=== PATIENT | female | born 1960 | race African-American/Black ===

== ENCOUNTER 2018-01-21 23:25 | Emergency (ER) | payer SELFPAY | END 2018-01-22 01:27 | disposition home or self-care (01) | LOC: ER 23:25 | DX: S16.1XXA Strain of muscle, fascia and tendon at neck level, initial encounter (principal); S00.93XA Contusion of unspecified part of head, initial encounter; I11.0 Hypertensive heart disease with heart failure; I50.9 Heart failure, unspecified; W01.0XXA Fall on same level from slipping, tripping and stumbling without subsequent striking against object, initial encounter; Y93.89 Activity, other specified; Y99.8 Other external cause status; Y92.89 Other specified places as the place of occurrence of the external cause | CPT/HCPCS: 70450; 72125; 99284 ==

== ENCOUNTER 2018-02-05 01:57 | Emergency (ER) | payer SELFPAY | END 2018-02-05 03:00 | disposition home or self-care (01) | LOC: ER 01:57 | DX: R51 Headache (principal); I50.9 Heart failure, unspecified; E78.00 Pure hypercholesterolemia, unspecified; I10 Essential (primary) hypertension; I25.2 Old myocardial infarction; Z88.6 Allergy status to analgesic agent | CPT/HCPCS: 99282 ==

== ENCOUNTER 2018-02-11 01:11 | Emergency (ER) | payer SELFPAY ==
[2018-02-11] MEDS: diazePAM 5 MG TABLET PO (02:57)
== END 2018-02-11 03:10 | disposition home or self-care (01) ==
LOC: ER 01:11
DX: F41.9 Anxiety disorder, unspecified (principal); R51 Headache; K59.00 Constipation, unspecified; I11.0 Hypertensive heart disease with heart failure; I50.9 Heart failure, unspecified; E78.00 Pure hypercholesterolemia, unspecified; I25.2 Old myocardial infarction; Z88.8 Allergy status to other drugs, medicaments and biological substances
CPT/HCPCS: 99283; 99284

== ENCOUNTER 2018-03-18 18:03 | Emergency (ER) | payer SELFPAY ==
[2018-03-18 18:33] LABS: BILIRUBIN,URINE SMALL (NEG); CLARITY,URINE TURBID; COLOR,URINE AMBER; GLUCOSE,URINE NEGATIVE (NEG); NITRITE,URINE POSITIVE (NEG); PROTEIN,URINE >=300 mg/dL (NEG-TRACE)
[2018-03-18 18:51] LABS: BACTERIA,URINE MANY /HPF (0-FEW); RBC,URINE >40 /HPF (0-2); SQUAMOUS EPITHELIAL CELL,UR MOD /LPF; WBC,URINE TNTC /HPF (0-4)
== END 2018-03-18 19:03 | disposition home or self-care (01) ==
LOC: ER 18:03
DX: N39.0 Urinary tract infection, site not specified (principal); I11.0 Hypertensive heart disease with heart failure; I50.9 Heart failure, unspecified; I25.10 Atherosclerotic heart disease of native coronary artery without angina pectoris; I25.2 Old myocardial infarction; E78.00 Pure hypercholesterolemia, unspecified; Z88.8 Allergy status to other drugs, medicaments and biological substances
CPT/HCPCS: 81001; 99283

== ENCOUNTER 2019-09-22 07:03 | Emergency (ER) | payer SELFPAY ==
[~2019-09-22] VITALS: Ht 162.6 cm; Wt 86.0 kg
[~2019-09-22 07:03] MED LIST: AMLO10TA8 PO; ATOR40TA PO; Aspirin PO; CARV12.511 PO; CARV3.12 PO; CARV6.25 PO; FURO-68 PO; FURO40TA4 PO; HYDR-2145 PO; Hydralazine Hcl PO; Isosorbide Mononitrate PO; LOSA100T2 PO; LOSA25TA54 PO; LOVA20TA2 PO; POTA20TA4 PO; SULF1TAB24 PO; TRAM50TA PO
--- NOTE | 2019-09-22 07:31 | EKG ---
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
[2019-09-22 07:49] LABS: BARBITURATES NEG (NEG); BENZODIAZEPINES NEG (NEG); CANNABINOIDS POS (NEG); COCAINE NEG (NEG); METHADONE NEG (NEG); OPIATES NEG (NEG); PHENCYCLIDINE NEG (NEG)
[2019-09-22 07:51] LABS: AMPHETAMINE/METHAMPHETAMINE NEG (NEG)
[2019-09-22 07:54] LABS: BILIRUBIN,URINE NEGATIVE (NEG); CLARITY,URINE CLOUDY; COLOR,URINE YELLOW; NITRITE,URINE POSITIVE (NEG); PROTEIN,URINE NEGATIVE (NEG-TRACE)
[2019-09-22 07:57] LABS: BACTERIA,URINE MODERATE /HPF (0-FEW); HYALINE CASTS, URINE MODERATE /HPF; SQUAMOUS EPITHELIAL CELL,UR MOD /LPF
[2019-09-22] MEDS ORDERED: cloNIDine HCL 0.1 MG TABLET PO ONE (08:15)
--- NOTE | 2019-09-22 08:18 | RAD ---
PORTABLE CHEST 1V History: Palpitations Comparison: August 05, 2016 Findings: No consolidation or pleural effusion. Normal heart size. No pneumothorax. Impression: 1. No acute cardiopulmonary process. Electronically signed by: Neil Goodwin DO (09/22/2019 8:16 AM) [facility]
--- NOTE | 2019-09-22 08:33 | PHYS DOC ---
Past Medical History Past Medical History: CAD, CHF, High Cholesterol, Hypertension, [place], Other Additional Past Medical Histor: cardiomegaly Past Surgical History: Other Additional Past Surgical Histo: cervix, heart cath Alcohol Use: Heavy Drug Use: None Adult General Chief Complaint Chief Complaint: Palpitations HPI HPI Patient is a 59 year old female with history of hypertension, dyslipidemia, coronary artery disease, CHF, cardiomegaly who presents via EMS with complaining of heart racing. [place] and had a panic Attack and felt shortness of breath and heart racing and denied shortness of breath. Patient states she feeling fine at arrival to ER. Patient [place]. Review of Systems Review of Systems Constitutional: Denies fever or chills [] Eyes: Denies change in visual acuity, redness, or eye pain [] HENT: Denies nasal congestion or sore throat [] Respiratory: Denies cough or shortness of breath [] Cardiovascular: No additional information not addressed in HPI [] GI: Denies abdominal pain, nausea, vomiting, bloody stools or diarrhea [] : Denies dysuria or hematuria [] Musculoskeletal: Denies back pain or joint pain [] Integument: Denies rash or skin lesions [] Neurologic: Denies headache, focal weakness or sensory changes [] Endocrine: Denies polyuria or polydipsia [] All other systems were reviewed and found to be within normal limits, except as documented in this note. Current Medications Current Medications Current Medications Medications (Trade) Dose Ordered Sig/Brenna Start Time Stop Time Status Last Admin Dose Admin Alprazolam (Xanax) 0.5 mg 1X ONCE 09/22/19 09:30 09/22/19 09:31 DC 09/22/19 10:36 0.5 MG Clonidine HCl (Catapres) 0.1 mg 1X ONCE 09/22/19 08:15 09/22/19 08:16 DC 09/22/19 08:20 0.1 MG Potassium Chloride (Klor-Con) 40 meq 1X ONCE 09/22/19 09:30 09/22/19 09:31 DC 09/22/19 10:36 40 MEQ Allergies Allergies Allergies Coded Allergies Type Severity Reaction Last Updated Verified nitroglycerin Allergy Intermediate 08/05/16 Yes Uncoded Allergies Type Severity Reaction Last Updated Verified unknown blood pressure medication Allergy Intermediate Swelling, Benadryl reverses rxn 08/13/16 Physical Exam Physical Exam Constitutional: Well developed, well nourished, mild distress, non-toxic appearance. [] HENT: Normocephalic, atraumatic. Eyes: PERRLA, EOMI, conjunctiva normal, no discharge. [] Neck: Normal range of motion, no tenderness, supple, no stridor. [] Cardiovascular:Heart rate regular rhythm, no murmur [] Lungs & Thorax: Bilateral breath sounds clear to auscultation [] Abdomen: Bowel sounds normal, soft, no tenderness, no masses, no pulsatile masses. [] Skin: Warm, dry, no erythema, no rash. [] Back: No tenderness, no CVA tenderness. [] Extremities: No tenderness, no cyanosis, no clubbing, ROM intact, no edema. [] Neurologic: Alert and oriented X 3, no focal deficits noted. [] Psychologic: Affect anxious, judgement normal, mood normal. [] Current Patient Data Vital Signs Vital Signs Date Time Temp Pulse Resp B/P (MAP) Pulse Ox O2 Delivery O2 Flow Rate FiO2 09/22/19 10:10 72 14 159/67 (97) 98 Room Air 09/22/19 07:03 98.4 98.4 Lab Values Laboratory Tests Test 09/22/19 07:33 09/22/19 08:55 Urine Collection Type Unknown Urine Color Yellow Urine Clarity Cloudy Urine pH 7.0 Urine Specific [place] 1.015 Urine Protein Negative mg/dL (NEG-TRACE) Urine Glucose (UA) Negative mg/dL (NEG) Urine Ketones (Stick) Negative mg/dL (NEG) Urine Blood Trace (NEG) Urine Nitrite Positive (NEG) Urine Bilirubin Negative (NEG) Urine Urobilinogen Dipstick 1.0 mg/dL (0.2 mg/dL) Urine Leukocyte Esterase Small (NEG) Urine RBC 1-2 /HPF (0-2) Urine WBC 11-20 /HPF (0-4) Urine Squamous Epithelial Cells Mod /LPF Urine Bacteria Moderate /HPF (0-FEW) Urine Hyaline Casts Moderate /HPF Urine Mucus Slight /LPF Urine Opiates Screen Neg (NEG) Urine Methadone Screen Neg (NEG) Urine Barbiturates Neg (NEG) Urine Phencyclidine Screen Neg (NEG) Urine Amphetamine/Methamphetamine Neg (NEG) Urine Benzodiazepines Screen Neg (NEG) Urine Cocaine Screen Neg (NEG) Urine Cannabinoids Screen Pos (NEG) Urine Ethyl Alcohol Neg (NEG) White Blood Count 6.5 x10^3/uL (4.0-11.0) Red Blood Count 5.26 x10^6/uL (3.50-5.40) Hemoglobin 16.8 g/dL (12.0-15.5) H Hematocrit 49.2 % (36.0-47.0) H Mean Corpuscular Volume 94 fL (79-100) Mean Corpuscular Hemoglobin 32 pg (25-35) Mean Corpuscular Hemoglobin Concent 34 g/dL (31-37) Red Cell Distribution Width 13.6 % (11.5-14.5) Platelet Count 172 x10^3/uL (140-400) Neutrophils (%) (Auto) 69 % (31-73) Lymphocytes (%) (Auto) 21 % (24-48) L Monocytes (%) (Auto) 6 % (0-9) Eosinophils (%) (Auto) 3 % (0-3) Basophils (%) (Auto) 1 % (0-3) Neutrophils # (Auto) 4.5 x10^3/uL (1.8-7.7) Lymphocytes # (Auto) 1.4 x10^3/uL (1.0-4.8) Monocytes # (Auto) 0.4 x10^3/uL (0.0-1.1) Eosinophils # (Auto) 0.2 x10^3/uL (0.0-0.7) Basophils # (Auto) 0.1 x10^3/uL (0.0-0.2) Sodium Level 142 mmol/L (136-145) Potassium Level 2.7 mmol/L (3.5-5.1) *L Chloride Level 101 mmol/L (98-107) Carbon Dioxide Level 29 mmol/L (21-32) Anion Gap 12 (6-14) Blood Urea Nitrogen 8 mg/dL (7-20) Creatinine 0.9 mg/dL (0.6-1.0) Estimated GFR (Cockcroft-Gault) 77.3 BUN/Creatinine Ratio 9 (6-20) Glucose Level 114 mg/dL (70-99) H Calcium Level 11.0 mg/dL (8.5-10.1) H Total Bilirubin 1.0 mg/dL (0.2-1.0) Aspartate Amino Transferase (AST) 32 U/L (15-37) Alanine Aminotransferase (ALT) 33 U/L (14-59) Alkaline Phosphatase 117 U/L (46-116) H Creatine Kinase 566 U/L (26-192) H Troponin I Quantitative 0.101 ng/mL (0.000-0.055) NT-Dcv-F-Type Natriuretic Peptide 221 pg/mL (0-124) H Total Protein 8.2 g/dL (6.4-8.2) Albumin 4.5 g/dL (3.4-5.0) Albumin/Globulin Ratio 1.2 (1.0-1.7) Ethyl Alcohol Level < 10 mg/dL (0-10) Laboratory Tests 09/22/19 08:55 Laboratory Tests 09/22/19 08:55 EKG EKG Interpreted by me. EKG at 0707 showed normal sinus rhythm at rate of 91, left morales axis, LVH with repolarization abnormality, no acute ST and T-wave elevation. Radiology/Procedures Radiology/Procedures [facility] [address] [place] [address] IMAGING REPORT Signed PATIENT: JOYCE BLACKMAN ACCOUNT: [id number] : 1960 LOCATION: ER AGE: 59 SEX: F EXAM STATUS: REG ER ORD. PHYSICIAN: DEISY PHAN MD REASON: palpitation PROCEDURE: PORTABLE CHEST 1V PORTABLE CHEST 1V History: Palpitations Comparison: August 05, 2016 Findings: No consolidation or pleural effusion. Normal heart size. No pneumothorax. Impression: 1. No acute cardiopulmonary process. Electronically signed by: Neil Goodwin DO (09/22/2019 8:16 AM) [facility] DICTATED and SIGNED BY: NEIL GOODWIN DO DATE: 09/22/19815 Course & Med Decision Making Course & Med Decision Making Pertinent Labs and Imaging studies reviewed. (See chart for details) Evaluation of patient ER showed 59-year-old female patient brought in by EMS after she developed panic attack after lost of her morning while she was increasing. Patient had unremarkable physical exam except for agitation. Patient had potassium of 2.7 with history of chronic hypokalemia and treated with potassium. Patient also had chronic elevation of troponin without new change today. UA showed UTI. Patient was advised to continue her home medication and prescription for UTI and hypokalemia was given and was advised to follow-up with her primary care physician. I've spoken with the patient and/or caregivers. I've explained the patient's condition, diagnosis and treatment plan based on information available to me at this time. I've answered the patient's and/or caregivers questions and addressed any concerns. The patient and/or caregivers have a good understanding the patient's diagnosis, condition and treatment plan as can be expected at this point. Vital signs have been stabilized. The patient's condition is stable for discharge from the emergency department. The patient will pursue further outpatient evaluation with her primary care provider or other designated consulting physician as outlined in the discharge instructions. Patient and/or caregivers are agreeable to this plan of care and follow-up instructions have been explained in detail. The patient and/or caregivers have received these instructions in written format and expressed understanding of these discharge instructions. The patient and her caregivers are aware that if any significant change in condition or worsening of symptoms should prompt him to immediately return to this of the closest emergency department. If an emergent department is not readily available I would encourage him to call 911. Kelsey Disclaimer Kelsey Disclaimer This electronic medical record was generated, in whole or in part, using a voice recognition dictation system. Departure Departure Impression: Primary Impression: Panic attack Additional Impressions: Hypokalemia Elevated troponin I level Hypertensive urgency Urinary tract infection Hypercalcemia Alcohol abuse Disposition: HOME, SELF-CARE (at 1006) Condition: IMPROVED Referrals: NO PCP (PCP) Patient Instructions: Anxiety and Panic Attacks, Hypokalemia, Urinary Tract Infection Additional Instructions: Drink plenty of liquids Follow-up with your primary care physician in 3-5 days Return to ER if not getting better Thank you for visiting [facility]. We appreciate you trusting us with your care. If any additional problems come up don't hesitate to return to visit us. Please follow up with your primary care provider so they can plan additional care if needed and know about the problem that you had. If symptoms worsen come back to the Emergency Department. Any concerning symptoms that start such as chest pain, shortness of air, weakness or numbness on one side of the body, running high fevers or any other concerning symptoms return to the ER. Scripts Potassium Chloride (KLOR-CON M20) 20 Meq Tab.er.prt 1 TAB PO BID, #14 TAB 0 Refills Prov: DEISY PHAN MD 09/22/19 Cephalexin (KEFLEX) 500 Mg Capsule 1 CAP PO Q8HRS, #21 CAP 0 Refills Prov: DEISY PHAN MD 09/22/19 Problem Qualifiers Additional Impressions: Urinary tract infection Urinary tract infection type: site unspecified Hematuria presence: without hematuria Qualified Codes: N39.0 - Urinary tract infection, site not specified DEISY PHAN MD Sep 22, 2019 08:33
[2019-09-22 09:13] LABS: BASO # 0.1 x10^3/uL (0.0-0.2); BASO % 1 % (0-3); EOS # 0.2 x10^3/uL (0.0-0.7); EOS % 3 % (0-3); HEMATOCRIT 49.2 % (36.0-47.0); HEMOGLOBIN 16.8 g/dL (12.0-15.5); LYMPH # 1.4 x10^3/uL (1.0-4.8); LYMPH % 21 % (24-48); MEAN CORPUSCULAR HEMOGLOBIN 32 pg (25-35); MEAN CORPUSCULAR HGB CONC 34 g/dL (31-37); MEAN CORPUSCULAR VOLUME 94 fL (79-100); MONO # 0.4 x10^3/uL (0.0-1.1); MONO % 6 % (0-9); NEUT # 4.5 x10^3/uL (1.8-7.7); NEUT % 69 % (31-73); PLATELET COUNT 172 x10^3/uL (140-400); RED BLOOD COUNT 5.26 x10^6/uL (3.50-5.40); RED CELL DISTRIBUTION WIDTH 13.6 % (11.5-14.5); WHITE BLOOD COUNT 6.5 x10^3/uL (4.0-11.0)
[2019-09-22 09:21] LABS: ALBUMIN 4.5 g/dL (3.4-5.0); ALBUMIN/GLOBULIN RATIO 1.2 (1.0-1.7); CREATININE 0.9 mg/dL (0.6-1.0); GFR 77.3; TOTAL PROTEIN 8.2 g/dL (6.4-8.2)
[2019-09-22 09:23] LABS: POTASSIUM 2.7 mmol/L (3.5-5.1)
[2019-09-22] MEDS ORDERED: POTASSIUM CHLORIDE 20 MEQ TABLET.ER. PO ONE (09:30)
[2019-09-22] MEDS ORDERED: ALPRAZolam 0.5 MG TABLET PO ONE (09:30)
[2019-09-22] MEDS ORDERED: CEPH-264 PO (10:09)
[2019-09-22] MEDS ORDERED: POTA20TA4 PO (10:09)
[2019-09-22 10:10] VITALS: BP 159/67
== END 2019-09-22 10:44 | disposition home or self-care (01) ==
LOC: ER 07:03
DX: F41.0 Panic disorder [episodic paroxysmal anxiety] (principal); N39.0 Urinary tract infection, site not specified; E87.6 Hypokalemia; R79.89 Other specified abnormal findings of blood chemistry; I10 Essential (primary) hypertension; E83.51 Hypocalcemia; F10.10 Alcohol abuse, uncomplicated; I25.10 Atherosclerotic heart disease of native coronary artery without angina pectoris; I50.9 Heart failure, unspecified; E78.00 Pure hypercholesterolemia, unspecified; I25.2 Old myocardial infarction; Z98.890 Other specified postprocedural states; Z88.1 Allergy status to other antibiotic agents; Z88.8 Allergy status to other drugs, medicaments and biological substances
CPT/HCPCS: 36415; 71045; 80053; 80307; 81001; 82550; 83880; 84484; 85025; 87086; 93005; 99285; G0480

== ENCOUNTER 2019-09-24 02:59 | Emergency (ER) | payer SELFPAY ==
[~2019-09-24] VITALS: Ht 162.6 cm; Wt 72.7 kg
[~2019-09-24 02:59] MED LIST changes: +CEPH-264 PO
[2019-09-24 03:10] VITALS: BP 194/98
[2019-09-24] MEDS ORDERED: AMOX1TAB61 PO (03:32)
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
[2019-09-24] MEDS: DIPHTH,PERTUSS(ACELL),TET TOX 0.5 ML DISP.SYRIN. VAX IM ONE (04:29)
== END 2019-09-24 04:42 | disposition home or self-care (01) ==
LOC: ER 02:59
DX: S61.256A Open bite of right little finger without damage to nail, initial encounter (principal); R60.9 Edema, unspecified; I25.10 Atherosclerotic heart disease of native coronary artery without angina pectoris; I50.9 Heart failure, unspecified; E78.00 Pure hypercholesterolemia, unspecified; I10 Essential (primary) hypertension; I25.2 Old myocardial infarction; F10.10 Alcohol abuse, uncomplicated; Z98.890 Other specified postprocedural states; Z88.1 Allergy status to other antibiotic agents; Z88.8 Allergy status to other drugs, medicaments and biological substances; Y04.1XXA Assault by human bite, initial encounter; Y93.89 Activity, other specified; Y92.89 Other specified places as the place of occurrence of the external cause; Y99.8 Other external cause status
CPT/HCPCS: 90471; 90715; 99284

== ENCOUNTER → 2019-09-25 | Emergency (ER) | payer SELFPAY ==
[~2019-09-25] VITALS: Ht 162.6 cm; Wt 90.9 kg
[~2019-09-25] MED LIST changes: +AMOX1TAB61 PO
--- NOTE | 2019-09-25 23:36 | PHYS DOC ---
Past Medical History Past Medical History: CAD, CHF, High Cholesterol, Hypertension, [place], Other Additional Past Medical Histor: cardiomegaly Past Surgical History: Other Additional Past Surgical Histo: cervix, heart cath Alcohol Use: Heavy Drug Use: None Adult General Chief Complaint Chief Complaint: HEADACHE HPI HPI Patient is a 59 year old female who presents with report that she feels like maybe her blood pressure is elevated. Patient states that she wanted to come in and have it checked. She also has questions about some medications that had been prescribed in the past but is not sure what those medications are. She states that she has had a little bit of a headache which is why she thinks that her blood pressure is elevated. She denies any chest pain or shortness breath. She denies any fever. She denies any nausea or vomiting.[] Review of Systems Review of Systems Constitutional: Denies fever or chills [] Eyes: Denies change in visual acuity, redness, or eye pain [] Respiratory: Denies cough or shortness of breath [] Cardiovascular: No additional information not addressed in HPI [] Integument: Denies rash or skin lesions [] Neurologic: Admits to mild headache without focal weakness or sensory changes [] Allergies Allergies Allergies Coded Allergies Type Severity Reaction Last Updated Verified nitroglycerin Allergy Intermediate 08/05/16 Yes Uncoded Allergies Type Severity Reaction Last Updated Verified unknown blood pressure medication Allergy Intermediate Swelling, Benadryl reverses rxn 08/13/16 Physical Exam Physical Exam Constitutional: Well developed, well nourished, no acute distress, non-toxic appearance. [] Neck: Normal range of motion, no tenderness, supple, no stridor. [] Cardiovascular: Regular rate and rhythm[] Lungs & Thorax: Bilateral breath sounds clear to auscultation [] Extremities: No tenderness, no cyanosis, no clubbing, ROM intact, no edema. [] Neurologic: Alert and oriented X 3, no focal deficits noted. [] Current Patient Data Vital Signs Vital Signs Date Time Temp Pulse Resp B/P (MAP) Pulse Ox O2 Delivery O2 Flow Rate FiO2 09/25/19 23:46 98.0 93 20 175/105 (128) 100 Room Air 98.0 EKG EKG [] Radiology/Procedures Radiology/Procedures [] Course & Med Decision Making Course & Med Decision Making Pertinent Labs and Imaging studies reviewed. (See chart for details) [] Dragon Disclaimer Dragon Disclaimer This electronic medical record was generated, in whole or in part, using a voice recognition dictation system. Departure Departure Impression: Primary Impression: Essential hypertension Disposition: 01 HOME, SELF-CARE Condition: STABLE Referrals: NO PCP (PCP) Patient Instructions: Hypertension TARI TODD Jr. DO Sep 25, 2019 23:36
[2019-09-25 23:46] VITALS: BP 175/105
== END ==
LOC: ER 22:57
DX: I10 Essential (primary) hypertension (principal); I25.10 Atherosclerotic heart disease of native coronary artery without angina pectoris; I50.9 Heart failure, unspecified; E78.00 Pure hypercholesterolemia, unspecified; I25.2 Old myocardial infarction; F10.10 Alcohol abuse, uncomplicated; Z98.890 Other specified postprocedural states; Z88.1 Allergy status to other antibiotic agents; Z88.8 Allergy status to other drugs, medicaments and biological substances
CPT/HCPCS: 99281

== ENCOUNTER 2019-10-03 03:45 | Emergency (ER) | payer SELFPAY ==
[~2019-10-03] VITALS: Ht 162.6 cm; Wt 72.7 kg
--- NOTE | 2019-10-03 04:11 | PHYS DOC ---
Past Medical History Past Medical History: CAD, CHF, High Cholesterol, Hypertension, [place], Other Additional Past Medical Histor: cardiomegaly Past Surgical History: Other Additional Past Surgical Histo: cervix, heart cath Alcohol Use: Heavy Drug Use: None Adult General Chief Complaint Chief Complaint: HYPERTENSION [facility] HPI 59-year-old female presents to emergency department for blood pressure check. Patient has had 9 visits to the emergency room since she's moved here in September. She denies any complaints of chest pain, shortness breath, nausea, vomiting, headache, visual change. She is resting comfortably at this time blood pressure is 181/78. She has no acute complaints on examination. She was concerned it was mildly elevated at home therefore presented to the ER for further evaluation. All other ROS negative unless documented in HPI Review of Systems Review of Systems See Above Allergies Allergies Allergies Coded Allergies Type Severity Reaction Last Updated Verified nitroglycerin Allergy Intermediate 08/05/16 Yes Uncoded Allergies Type Severity Reaction Last Updated Verified unknown blood pressure medication Allergy Intermediate Swelling, Benadryl reverses rxn 08/13/16 Physical Exam Physical Exam See Above Constitutional: Well developed, well nourished, no acute distress, non-toxic appearance. [] Cardiovascular:Heart rate regular rhythm, no murmur [] Lungs & Thorax: Bilateral breath sounds clear to auscultation [] Abdomen: Bowel sounds normal, soft, no tenderness, no masses, no pulsatile masses. [] Skin: Warm, dry, no erythema, no rash. [] Extremities: No tenderness, no edema. [] Neurologic: Alert and oriented X 3, no focal deficits noted. [] Psychologic: Affect normal, judgement normal, mood normal. [] EKG EKG [] Radiology/Procedures Radiology/Procedures [] Course & Med Decision Making Course & Med Decision Making Pertinent Labs and Imaging studies reviewed. (See chart for details) []59-year-old female presents to emergency department for blood pressure check. Patient has had 9 visits to the emergency room since she's moved here in September. She denies any complaints of chest pain, shortness breath, nausea, vomiting, headache, visual change. She is resting comfortably at this time blood pressure is 181/78. She has no acute complaints on examination. She was concer dionisio it was mildly elevated at home therefore presented to the ER for further evaluation. Dragon Disclaimer Dragon Disclaimer This electronic medical record was generated, in whole or in part, using a voice recognition dictation system. Departure Departure Impression: Primary Impression: Hypertension Disposition: HOME, SELF-CARE Condition: STABLE Referrals: NO PCP (PCP) Patient Instructions: Hypertension Additional Instructions: Recommend follow up with PCP 3 - 5 days Return to the ER with worsening symptoms, intractable pain, fever, altered mental status BP is stable at this time Recommend continue taking medications as directed Problem Qualifiers Primary Impression: Hypertension Hypertension type: essential hypertension Qualified Codes: I10 - Essential (primary) hypertension RAMOS ROSEN MD Oct 03, 2019 04:11
[2019-10-03 04:38] VITALS: BP 186/96
== END 2019-10-03 04:38 | disposition home or self-care (01) ==
LOC: ER 03:45
DX: I10 Essential (primary) hypertension (principal); I25.10 Atherosclerotic heart disease of native coronary artery without angina pectoris; I50.9 Heart failure, unspecified; E78.00 Pure hypercholesterolemia, unspecified; I25.2 Old myocardial infarction; F10.10 Alcohol abuse, uncomplicated; Z98.890 Other specified postprocedural states; Z88.1 Allergy status to other antibiotic agents
CPT/HCPCS: 99283

== ENCOUNTER 2019-10-12 18:16 | Emergency (ER) | payer SELFPAY ==
[~2019-10-12] VITALS: Ht 162.6 cm; Wt 72.2 kg
[2019-10-12 21:01] VITALS: BP 167/91
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
[2019-10-12] MEDS ORDERED: IBUPROFEN 200 MG TABLET. PO ONE (22:30)
[2019-10-12] MEDS ORDERED: HYDR-3164 PO (23:00)
--- NOTE | 2019-10-13 00:05 | RAD ---
Study: KNEE RIGHT 2V Indication: Swelling. Comparison: None. Findings: No acute fracture or malalignment. No advanced degenerative changes. Quadriceps insertion enthesophyte formation. Potential small amount of fluid within the suprapatellar recess. Impression: No acute fracture or advanced degenerative changes. Possible small amount of knee joint fluid at the suprapatellar recess. Electronically signed by: LATHA COTTER MD (10/13/2019 12:01 AM) [id number]
== END 2019-10-12 23:15 | disposition home or self-care (01) ==
LOC: ER 18:16
DX: M25.561 Pain in right knee (principal); I11.0 Hypertensive heart disease with heart failure; I50.9 Heart failure, unspecified; E78.00 Pure hypercholesterolemia, unspecified; F10.20 Alcohol dependence, uncomplicated; Y90.9 Presence of alcohol in blood, level not specified; I25.10 Atherosclerotic heart disease of native coronary artery without angina pectoris; I25.2 Old myocardial infarction; F17.200 Nicotine dependence, unspecified, uncomplicated; Z88.8 Allergy status to other drugs, medicaments and biological substances
CPT/HCPCS: 73560; 99283

== ENCOUNTER 2019-10-13 16:44 | Emergency (ER) | payer SELFPAY ==
[2019-10-12 21:01] VITALS: BP 167/91
[~2019-10-13] VITALS: Ht 162.6 cm; Wt 72.7 kg
[~2019-10-13 16:44] MED LIST changes: +HYDR-3164 PO
--- NOTE | 2019-10-13 17:19 | PHYS DOC ---
Past Medical History Past Medical History: CAD, CHF, High Cholesterol, Hypertension, [place], Other Additional Past Medical Histor: cardiomegaly Past Surgical History: Other Additional Past Surgical Histo: cervix, heart cath Smoking Status: Current Every Day Smoker Alcohol Use: Heavy Drug Use: None Adult General Chief Complaint Chief Complaint: KNEE INJURY [facility] HPI Patient is a 59 year old female who presents with Patient was here yesterday for twisting her knee. X-rays were done and patient has no acute injuries. Patient is here today stating that she needs to be given narcotic pain medications and other narcotics from her previous visit to this hospital that she needs more of. I saw this patient yesterday and gave her medication prescriptions. I told her I would not be prescribing her anymore narcotics. She states that she lost the paper. I stated that I would not be calling her in any narcotics. She then states "well I guess I didn't lose it, lose it. I know where it is just have to go to a pharmacy to fill it". Patient then states " got the other narcotics that the other doctor prescribed me here that [facility] wouldn't give me? I need a prescription for those or any a doctor to call those in for me." I stated to the patient that no more narcotics would be called in for her. Patient states "well I have got a lot of things to do. I need to find my glasses. Then I need to find a ride. My son works 2 jobs. Then I need to go to the clinic tomorrow. I need more Xanax." The patient that she needs to follow-up at the clinic tomorrow for any other medication she needs. The patient states okay. She states "I can take ibuprofen, epsom saw baths, and use a heating pad for my knee sprain." I stated yes. Patient states "okay I'm good then." Review of Systems Review of Systems Constitutional: Denies fever or chills [] Eyes: Denies change in visual acuity, redness, or eye pain [] HENT: Denies nasal congestion or sore throat [] Respiratory: Denies cough or shortness of breath [] Cardiovascular: No additional information not addressed in HPI [] GI: Denies abdominal pain, nausea, vomiting, bloody stools or diarrhea [] : Denies dysuria or hematuria [] Musculoskeletal: Denies back pain or joint pain [] Integument: Denies rash or skin lesions [] Neurologic: Denies headache, focal weakness or sensory changes [] Endocrine: Denies polyuria or polydipsia [] Medication refill All other systems were reviewed and found to be within normal limits, except as documented in this note. Allergies Allergies Allergies Coded Allergies Type Severity Reaction Last Updated Verified nitroglycerin Allergy Intermediate 08/05/16 Yes Uncoded Allergies Type Severity Reaction Last Updated Verified unknown blood pressure medication Allergy Intermediate Swelling, Benadryl reverses rxn 08/13/16 Physical Exam Physical Exam Constitutional: Well developed, well nourished, no acute distress, non-toxic appearance. [] HENT: Normocephalic, atraumatic, bilateral external ears normal, oropharynx moist, no oral exudates, nose normal. [] Eyes: PERRLA, EOMI, conjunctiva normal, no discharge. [] Neck: Normal range of motion, no tenderness, supple, no stridor. [] Cardiovascular:Heart rate regular rhythm, no murmur [] Lungs & Thorax: Bilateral breath sounds clear to auscultation [] Abdomen: Bowel sounds normal, soft, no tenderness, no masses, no pulsatile masses. [] Skin: Warm, dry, no erythema, no rash. [] Back: No tenderness, no CVA tenderness. [] Extremities: No tenderness, no cyanosis, no clubbing, ROM intact, no edema. [] Neurologic: Alert and oriented X 3, normal motor function, normal sensory function, no focal deficits noted. [] Psychologic: Affect normal, judgement normal, mood normal. Normal Physical Exam[] Current Patient Data Vital Signs Vital Signs Date Time Temp Pulse Resp B/P (MAP) Pulse Ox O2 Delivery O2 Flow Rate FiO2 10/13/19 16:58 98.6 84 16 167/91 (116) 99 Room Air 98.6 EKG EKG [] Radiology/Procedures Radiology/Procedures [] Course & Med Decision Making Course & Med Decision Making Pertinent Labs and Imaging studies reviewed. (See chart for details) She is medically screened. Patient is ambulatory with a steady gait. She denies numbness, tingling, increased pain. There is no swelling, redness, no laxity in the knee. Skin pink warm and dry. Normal physical exam. No tenderness. [] Dragon Disclaimer Dragon Disclaimer This electronic medical record was generated, in whole or in part, using a voice recognition dictation system. Departure Departure Impression: Primary Impression: Encounter for medical screening examination Disposition: HOME, SELF-CARE Condition: STABLE Referrals: NO PCP (PCP) Patient Instructions: Medical Screening Exam Additional Instructions: Follow-up with clinic as we discussed. Take ibuprofen for your pain. JIM MOSQUEDA APRN Oct 13, 2019 17:19
== END 2019-10-13 17:20 | disposition home or self-care (01) ==
LOC: ER 16:44
DX: M25.561 Pain in right knee (principal); I11.0 Hypertensive heart disease with heart failure; I50.9 Heart failure, unspecified; I25.2 Old myocardial infarction; E78.00 Pure hypercholesterolemia, unspecified; F10.10 Alcohol abuse, uncomplicated; F17.200 Nicotine dependence, unspecified, uncomplicated; Z98.890 Other specified postprocedural states; Z88.1 Allergy status to other antibiotic agents
CPT/HCPCS: 99281

== ENCOUNTER 2020-11-04 23:44 | Observation (INO) | payer SELFPAY ==
[~2020-11-04] VITALS: Ht 162.6 cm; Wt 98.3 kg
[~2020-11-04 23:44] MED LIST changes: +AMLO-187 PO; -AMLO10TA8 PO
[2020-11-05] MEDS ORDERED: IV NORMAL SALINE 1000ML BAG 1,000 ML IV SCH (00:45)
[2020-11-05] MEDS ORDERED: IBUPROFEN 400 MG TABLET. PO ONE (00:45)
[2020-11-05 00:50] LABS: BILIRUBIN,URINE NEGATIVE (NEG); CLARITY,URINE CLEAR; COLOR,URINE YELLOW; NITRITE,URINE NEGATIVE (NEG); PROTEIN,URINE NEGATIVE (NEG-TRACE)
--- NOTE | 2020-11-05 00:51 | EKG ---
[facility] [address] [place] [address] Test Date: 2020-11-05 Test Time: 00:47:35 Pat Name: JOYCE BLACKMAN Department: Room: Gender: F Brancher: : 1960 Requested By: MAG GONZALEZ Order Number: [id number] Reading MD: Measurements Intervals [place] Rate: 76 P: 58 WI: 176 QRS: -22 QRSD: 100 T: 64 QT: 372 QTc: 423 Interpretive Statements SINUS RHYTHM LEFT ATRIAL ABNORMALITY LEFTWARD AXIS CONSIDER LEFT VENTRICULAR HYPERTROPHY QRS(T) CONTOUR ABNORMALITY CONSISTENT WITH ANTEROSEPTAL INFARCT AGE UNDETERMINED ST & T ABNORMALITY, CONSIDER HIGH LATERAL ISCHEMIA OR LEFT VENTRICULAR STRAIN ABNORMAL ECG RI6.02 No previous ECG available for comparison
[2020-11-05 00:57] LABS: BARBITURATES NEG (NEG); BENZODIAZEPINES NEG (NEG); CANNABINOIDS POS (NEG); COCAINE NEG (NEG); METHADONE NEG (NEG); OPIATES NEG (NEG); PHENCYCLIDINE NEG (NEG)
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
[2020-11-05 01:03] LABS: BASO # 0.1 x10^3/uL (0.0-0.2); BASO % 1 % (0-3); EOS # 0.2 x10^3/uL (0.0-0.7); EOS % 2 % (0-3); HEMATOCRIT 44.1 % (36.0-47.0); HEMOGLOBIN 15.6 g/dL (12.0-15.5); LYMPH # 2.4 x10^3/uL (1.0-4.8); LYMPH % 22 % (24-48); MEAN CORPUSCULAR HEMOGLOBIN 32 pg (25-35); MEAN CORPUSCULAR HGB CONC 35 g/dL (31-37); MEAN CORPUSCULAR VOLUME 91 fL (79-100); MONO % 9 % (0-9); NEUT # 7.1 x10^3/uL (1.8-7.7); NEUT % 66 % (31-73); PLATELET COUNT 177 x10^3/uL (140-400); RED BLOOD COUNT 4.85 x10^6/uL (3.50-5.40); RED CELL DISTRIBUTION WIDTH 13.2 % (11.5-14.5); WHITE BLOOD COUNT 10.7 x10^3/uL (4.0-11.0)
[2020-11-05 01:04] LABS: BACTERIA,URINE FEW /HPF (0-FEW)
[2020-11-05 01:17] LABS: AMPHETAMINE/METHAMPHETAMINE NEG (NEG)
[2020-11-05 01:18] LABS: CALCIUM 10.8 mg/dL (8.5-10.1); CREATININE 1.8 mg/dL (0.6-1.0); GFR 34.6
[2020-11-05 01:20] LABS: POTASSIUM 2.3 mmol/L (3.5-5.1)
[2020-11-05] MEDS ORDERED: IV NORMAL SALINE 1000ML BAG 1,000 ML IV ONE (01:30)
[2020-11-05] MEDS: POTASSIUM CHLORIDE 20MEQ 100 ML IV SCH ×2 (01:36→02:59)
--- NOTE | 2020-11-05 01:48 | RAD ---
EXAM: 1. CHEST ONE VIEW. 2. PELVIS ONE VIEW. HISTORY: Fall. COMPARISON: 09/22/2019. FINDINGS: A frontal view of the chest is obtained. There are no confluent infiltrates. There is no pneumothorax or pleural effusion. The heart is not en larged. There are atherosclerotic calcifications of the aorta. A frontal view of the pelvis is obtained. No fractures are appreciated in the pelvis. The joint spaces and alignment of both hips are maintaine d. IMPRESSION: 1. No confluent infiltrates. 2. No fracture. Electronically signed by: Marcelo Hill MD (11/05/2020 1:46 AM) [facility]
--- NOTE | 2020-11-05 03:00 | RAD ---
EXAM: CT lumbar spine without contrast. HISTORY: Fall, low back pain. TECHNIQUE: CT of the lumbar spine was performed without intravenous contrast. One or more of the foll owing individualized dose reduction techniques were utilized for this examination: 1. Automated exposure control. 2. Adjustment of the mA and/or kV according to patient size. 3. Use of iterative reconstruction technique. COMPARISON: None. FINDINGS: No fractures are identified. A minimal lumbar levocurvature measures <10 degrees. Degenerat howie disc disease is moderate at L5-S1. From L1 through L4, there is no stenosis. At L4-5, there is mild facet and ligamentum flavum hypertrophy. There is a small posterior disc bulge . There is mild right neural foraminal narrowing. At L5-S1, there is a moderate posterior disc-osteophyte complex. Neural foraminal stenosis is mild to moderate on the left and mild on the right. Both adrenal glands are thickened without discrete nodules. IMPRESSION: 1. No fracture. 2. Moderate degenerative disc disease at L5-S1. Neural foraminal stenosis is mild to moderate at this level on the left greater than right. Electronically signed by: Marcelo Hill MD (11/05/2020 2:58 AM) [facility]
[2020-11-05] MEDS ORDERED: MORPHINE SULFATE 4 MG/ML VIAL. IV PRN (03:15)
[2020-11-05] MEDS ORDERED: ONDANSETRON PF 4 MG/2 ML VIAL. IV PRN (03:15)
[2020-11-05 05:03] VITALS: BP 152/75
[2020-11-05] MEDS ORDERED: HYDR25TA10 PO (05:34)
[2020-11-05] MEDS ORDERED: CARV25TA2 PO (05:34)
[2020-11-05] MEDS ORDERED: POTA20TA84 PO (05:34)
[2020-11-05] MEDS ORDERED: LOSA25TA12 PO (05:34)
[2020-11-05] MEDS ORDERED: ASPI-886 PO (05:34)
[2020-11-05] MEDS ORDERED: ATOR40TA59 PO (05:34)
[2020-11-05 07:00] VITALS: BP 133/68
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
[2020-11-05] MEDS: ASPIRIN ENTERIC COATED 81 MG TABLET.DR. PO SCH (09:12)
[2020-11-05] MEDS: LOSARTAN POTASSIUM 25 MG TABLET. PO SCH (09:12)
[2020-11-05] MEDS: CINACALCET HCL 30 MG TABLET PO SCH (09:12)
[2020-11-05] MEDS: amLODIPine BESYLATE 10 MG TABLET PO SCH ×2 (09:12→21:56)
[2020-11-05] MEDS: POTASSIUM CHLORIDE 20 MEQ TABLET.ER. PO SCH ×2 (09:13→21:56)
[2020-11-05 10:19] LABS: DIRECT BILIRUBIN 0.6 mg/dL (0.0-0.2); TOTAL BILIRUBIN 2.6 mg/dL (0.2-1.0); TOTAL PROTEIN 7.6 g/dL (6.4-8.2)
[2020-11-05] MEDS: POTASSIUM CL 20MEQ D5-0.45NACL 1,000 ML IV SCH ×2 (10:52→21:53)
[2020-11-05] MEDS: LIDOCAINE (700MG/PATCH) PATCH. TD SCH (10:59)
[2020-11-05 11:00] VITALS: BP 156/78
[2020-11-05] MEDS ORDERED: ENOXAPARIN 40 MG/0.4 ML SYRINGE. SQ SCH ×2 (11:00→21:00)
--- NOTE | 2020-11-05 13:24 | RAD ---
CLINICAL HISTORY: ACUTE RENAL FAILURE COMPARISON: None available. TECHNIQUE: Ultrasound examination of the bilateral kidneys and urinary bladder was performed. FINDINGS: The right kidney measures 11.8 cm in bipolar length. The renal cortex is normal in thickness. Renal e chogenicity is mildly increased. Right interpolar renal cyst measures 2.6 x 2.2 cm. There is no evide nce for hydronephrosis, shadowing renal calculus. The left kidney measures 10.3 cm in bipolar length. The renal cortex is normal in thickness. Renal ec hogenicity is mildly increased. There is no evidence for hydronephrosis, shadowing renal calculus or focal abnormality. Images of the partially filled urinary bladder are unremarkable. IMPRESSION: 1. Mild increased echogenicity of the kidneys, likely chronic medical renal disease. 2. Simple appearing right interpolar cyst. 3. No hydronephrosis. Electronically signed by: Riaz Khan MD (11/05/2020 1:22 PM) MYRANDA
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
[2020-11-05 15:00] VITALS: BP 161/85
[2020-11-05 19:00] VITALS: BP 156/91
[2020-11-05] MEDS ORDERED: ATORVASTATIN CALCIUM 40 MG TABLET. PO SCH (21:00)
[2020-11-05] MEDS ORDERED: PATCH REMOVAL. MC SCH (21:00)
[2020-11-05 23:00] VITALS: BP 166/97
[2020-11-06 03:31] VITALS: BP 133/65
[2020-11-06 03:32] VITALS: BP 133/65
[2020-11-06 04:25] LABS: BASO % 1 % (0-3); EOS # 0.3 x10^3/uL (0.0-0.7); EOS % 3 % (0-3); HEMATOCRIT 41.1 % (36.0-47.0); HEMOGLOBIN 13.9 g/dL (12.0-15.5); LYMPH # 2.3 x10^3/uL (1.0-4.8); LYMPH % 26 % (24-48); MEAN CORPUSCULAR HEMOGLOBIN 31 pg (25-35); MEAN CORPUSCULAR HGB CONC 34 g/dL (31-37); MEAN CORPUSCULAR VOLUME 93 fL (79-100); MONO # 0.7 x10^3/uL (0.0-1.1); MONO % 7 % (0-9); NEUT # 5.6 x10^3/uL (1.8-7.7); NEUT % 63 % (31-73); PLATELET COUNT 174 x10^3/uL (140-400); RED BLOOD COUNT 4.43 x10^6/uL (3.50-5.40); RED CELL DISTRIBUTION WIDTH 13.5 % (11.5-14.5); WHITE BLOOD COUNT 8.8 x10^3/uL (4.0-11.0)
[2020-11-06 04:33] LABS: CALCIUM 9.7 mg/dL (8.5-10.1); CREATININE 1.1 mg/dL (0.6-1.0); GFR 61.1; POTASSIUM 3.1 mmol/L (3.5-5.1)
--- NOTE | 2020-11-06 04:55 | NUR ---
Pt has been awake all night. Fidgeting with things. Took a shower. Talking about unrealistic things such as marrying a celebrity. She says that she in engaged to Willy Dias. She is convinced that he will come here looking for her. 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 When asked where she lives, she will tell you she is homeless. She also states that she is going to be on [employer] and [employer]. 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 She said she has an interview scheduled with Katia Rosas.
[2020-11-06 07:14] VITALS: BP 144/101
[2020-11-06] MEDS: CINACALCET HCL 30 MG TABLET PO SCH (08:27)
[2020-11-06] MEDS: POTASSIUM CHLORIDE 20 MEQ TABLET.ER. PO SCH (08:27)
[2020-11-06] MEDS: LOSARTAN POTASSIUM 25 MG TABLET. PO SCH (08:27)
[2020-11-06] MEDS: amLODIPine BESYLATE 10 MG TABLET PO SCH (08:27)
[2020-11-06] MEDS: ASPIRIN ENTERIC COATED 81 MG TABLET.DR. PO SCH (08:27)
[2020-11-06] MEDS: LIDOCAINE (700MG/PATCH) PATCH. TD SCH (08:28)
[2020-11-06] MEDS: POTASSIUM CL 20MEQ D5-0.45NACL 1,000 ML IV SCH (08:29)
[2020-11-06] MEDS ORDERED: POTA20TA84 PO (09:29)
[2020-11-06] MEDS ORDERED: LIDO700A21 TD (09:29)
[2020-11-06] MEDS ORDERED: CINA30TA6 PO (09:29)
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
[2020-11-06] MEDS ORDERED: METOPROLOL TART IMMED RELEASE 50 MG TABLET. PO ONE (11:00)
[2020-11-06] MEDS ORDERED: METOPROLOL IV PUSH 5 MG/5 ML VIAL. IVP ONE (11:00)
[2020-11-06 11:05] VITALS: BP 201/100
[2020-11-06] MEDS ORDERED: POTASSIUM CHLORIDE 20 MEQ TABLET.ER. PO ONE (12:00)
--- NOTE | 2020-11-06 12:22 | NUR ---
Discharge Note: MOSHE BLACKMAN [facility] Discharge instructions and discharge home medications reviewed with Patient and a copy given. All questions have been answered and understanding verbalized. The following instructions and handouts were given: Patient given education regarding new medication and follow ups. Discontinued lines and drains: patients IV removed per protocol. Patient discharged. Patient homeless, picked up via cab pass.
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
[2020-11-07 08:10] LABS: CALCIUM PTH 10.5 mg/dL (8.7-10.3); CREATININE PTH 1.02 mg/dL (0.57-1.00); PHOSPHORUS PTH 1.6 mg/dL (3.0-4.3); PTH INTACT 181 pg/mL (15-65)
== END 2020-11-06 12:20 | disposition home or self-care (01) ==
LOC: ER 23:44 → 6 SOUTH 11-05 03:37
PROVIDERS: ADMIT Internal Medicine; ATTEND Internal Medicine
DX: E87.6 Hypokalemia (principal); G93.41 Metabolic encephalopathy; E83.52 Hypercalcemia; R07.89 Other chest pain; T14.8XXA Other injury of unspecified body region, initial encounter; I11.0 Hypertensive heart disease with heart failure; I50.9 Heart failure, unspecified; I25.10 Atherosclerotic heart disease of native coronary artery without angina pectoris; I38 Endocarditis, valve unspecified; M94.0 Chondrocostal junction syndrome [Tietze]; E78.00 Pure hypercholesterolemia, unspecified; N17.9 Acute kidney failure, unspecified; E66.9 Obesity, unspecified; M25.562 Pain in left knee; M25.561 Pain in right knee; M25.521 Pain in right elbow; Z87.891 Personal history of nicotine dependence; Z68.37 Body mass index [BMI] 37.0-37.9, adult; Z98.890 Other specified postprocedural states; Z79.82 Long term (current) use of aspirin; Z79.899 Other long term (current) drug therapy
CPT/HCPCS: 36415; 71045; 72131; 72170; 76770; 80048; 80076; 80307; 81001; 82310; 82962; 83735; 83970; 85025; 93005; 96361; 96365; 96366; 96372; 99285; G0378; J1650; J3480; J7030; G0379

== ENCOUNTER 2020-11-11 01:36 | Emergency (ER) | payer SELFPAY ==
[~2020-11-11] VITALS: Ht 162.6 cm; Wt 72.7 kg
[~2020-11-11 01:36] MED LIST changes: +ASPI-886 PO; +ATOR40TA59 PO; +CARV25TA2 PO; +CINA30TA6 PO; +HYDR25TA10 PO; +LIDO700A21 TD; +LOSA25TA12 PO; +POTA20TA84 PO
[2020-11-11 02:08] LABS: CREATININE 1.1 mg/dL (0.6-1.0); GFR 61.1; POTASSIUM 3.1 mmol/L (3.5-5.1)
[2020-11-11] MEDS ORDERED: ASPI-630 PO (02:49)
[2020-11-11] MEDS ORDERED: ATOR40TA59 PO (02:49)
[2020-11-11] MEDS ORDERED: CARV25TA2 PO (02:49)
[2020-11-11] MEDS ORDERED: HYDR-2145 PO (02:49)
--- NOTE | 2020-11-11 02:50 | ED.ADGEN ---
Past Medical History Past Medical History: CAD, CHF, High Cholesterol, Hypertension, [place], Other Additional Past Medical Histor: cardiomegaly Past Surgical History: Other Additional Past Surgical Histo: cervix, heart cath Smoking Status: Current Every Day Smoker Alcohol Use: Heavy Drug Use: None General Adult EDM: Chief Complaint: MEDICATION REFILL HPI: HPI: Patient is a 60 year old female coming in via EMS for leg cramping and medication refill. Patient states has been cramping in her legs. Patient that she lost her medications and is homeless. Medications are for her for hypertension and hypokalemia. Has been out of her medication 2 to 3 days. Was recently stating that RSI does not start any psych medications. Review of Systems: Review of Systems: All other systems within normal limits except for as noted in the HPI Current Medications: Current Medications Medications (Trade) Dose Ordered Sig/Brenna Start Time Stop Time Status Last Admin Dose Admin Potassium Chloride (Klor-Con) 40 meq 1X ONCE 11/11/20 02:30 11/11/20 02:31 UNV Allergies: Allergies: Allergies Coded Allergies Type Severity Reaction Last Updated Verified nitroglycerin Allergy Intermediate 08/05/16 Yes Uncoded Allergies Type Severity Reaction Last Updated Verified unknown blood pressure medication Allergy Intermediate Swelling, Benadryl reverses rxn 08/13/16 Physical Exam: PE: Constitutional: Well developed, well nourished, no acute distress, non-toxic appearance. [] HENT: Normocephalic, atraumatic, bilateral external ears normal, nose normal. [] Eyes: PERRLA, conjunctiva normal, no discharge. [] Neck: No rigidity, supple, no stridor. [] Cardiovascular: Regular rate and rhythm, brisk cap refill [] Lungs & Thorax: Non labored symmetric respirations, no tachypnea or respiratory distress [] Abdomen: Soft, nondistended. Skin: Warm, dry, no erythema, no rash. [] Back: Unremarkable Extremities: No deformities, range of motion grossly intact, no lower extremity edema [] Neurologic: Alert and oriented X 3, no focal deficits noted. [] Psychologic: Disorganized thinking, denies SI or HI [] Current Patient Data: Labs: Laboratory Tests Test 11/11/20 01:50 Sodium Level 138 mmol/L (136-145) Potassium Level 3.1 mmol/L (3.5-5.1) L Chloride Level 104 mmol/L (98-107) Carbon Dioxide Level 24 mmol/L (21-32) Anion Gap 10 (6-14) Blood Urea Nitrogen 13 mg/dL (7-20) Creatinine 1.1 mg/dL (0.6-1.0) H Estimated GFR (Cockcroft-Gault) 61.1 Glucose Level 137 mg/dL (70-99) H Calcium Level 11.0 mg/dL (8.5-10.1) H Laboratory Tests 11/11/20 01:50 Vital Signs: Vital Signs Date Time Temp Pulse Resp B/P (MAP) Pulse Ox O2 Delivery O2 Flow Rate FiO2 11/11/20 01:39 97.7 112 20 160/90 (113) 99 Room Air 97.7 EKG: EKG: [] Heart Score: C/O Chest Pain: No Risk Factors: Risk Factors: DM, Current or recent (<one month) smoker, HTN, HLP, family history of CAD, obesity. Risk Scores: Score 0 - 3: 2.5% MACE over next 6 weeks - Discharge Home Score 4 - 6: 20.3% MACE over next 6 weeks - Admit for Clinical Observation Score 7 - 10: 72.7% MACE over next 6 weeks - Early Invasive Strategies Radiology/Procedures: Radiology/Procedures: [] Course & Med Decision Making: Course & Med Decision Making Called [facility] to confirm that she has no psychiatric medications. Kelsey Disclaimer: Kelsey Disclaimer: This electronic medical record was generated, in whole or in part, using a voice recognition dictation system. Departure Departure Impression: Primary Impression: Hypokalemia Additional Impression: Medication refill Disposition: 01 DC HOME SELF CARE/HOMELESS Condition: STABLE Referrals: NO PCP (PCP) Patient Instructions: Hypokalemia Scripts Atorvastatin Calcium (ATORVASTATIN CALCIUM) 40 Mg Tablet 1 TAB PO DAILY for hypertension, #30 TAB 0 Refills Prov: MEJIA DWYER MD 11/11/20 Aspirin (ASPIRIN) 81 Mg Tab.chew 1 TAB PO DAILY for 30 Days, #30 TAB 3 Refills Prov: MEJIA DWYER MD 11/11/20 Hydrochlorothiazide (HYDROCHLOROTHIAZIDE TABLET ) 25 Mg Tablet 25 MG PO DAILY for DIURETIC for 30 Days, #30 TAB 0 Refills Prov: MEJIA DWYER MD 11/11/20 Carvedilol (CARVEDILOL) 25 Mg Tablet 25 MG PO DAILY for CARDIAC for 30 Days, #30 TAB Prov: MEJIA DWYER MD 11/11/20 Problem Qualifiers MEJIA DWYER MD Nov 11, 2020 02:50
[2020-11-11] MEDS: POTASSIUM CHLORIDE 20 MEQ TABLET.ER. PO ONE (03:19)
[2020-11-11 03:20] VITALS: BP 181/100
== END 2020-11-11 03:45 | disposition home or self-care (01) ==
LOC: ER 01:36
DX: E87.6 Hypokalemia (principal); Z76.0 Encounter for issue of repeat prescription; R25.2 Cramp and spasm; I10 Essential (primary) hypertension; I11.0 Hypertensive heart disease with heart failure; I50.9 Heart failure, unspecified; E78.00 Pure hypercholesterolemia, unspecified; I25.10 Atherosclerotic heart disease of native coronary artery without angina pectoris; I25.2 Old myocardial infarction; F17.200 Nicotine dependence, unspecified, uncomplicated; F10.20 Alcohol dependence, uncomplicated; Y90.9 Presence of alcohol in blood, level not specified; Z88.4 Allergy status to anesthetic agent
CPT/HCPCS: 36415; 80048; 99283

== ENCOUNTER 2020-11-12 15:37 | Emergency (ER) | payer SELFPAY ==
[~2020-11-12] VITALS: Ht 162.6 cm; Wt 80.0 kg
[~2020-11-12 15:37] MED LIST changes: +ASPI-630 PO
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
[2020-11-12 17:25] VITALS: BP 133/73
== END 2020-11-12 17:25 | disposition home or self-care (01) ==
LOC: ER 15:37
DX: R25.2 Cramp and spasm (principal); I11.0 Hypertensive heart disease with heart failure; I50.9 Heart failure, unspecified; E78.00 Pure hypercholesterolemia, unspecified; I25.2 Old myocardial infarction; F17.200 Nicotine dependence, unspecified, uncomplicated; F10.10 Alcohol abuse, uncomplicated; Z98.890 Other specified postprocedural states; Z59.0 Homelessness; Z88.1 Allergy status to other antibiotic agents; Z88.8 Allergy status to other drugs, medicaments and biological substances
CPT/HCPCS: 99283

== ENCOUNTER 2020-11-15 13:57 | Inpatient (IN) | payer SELFPAY ==
[~2020-11-15] VITALS: Ht 162.6 cm; Wt 91.2 kg
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
[2020-11-15 15:29] LABS: BARBITURATES NEG (NEG); BENZODIAZEPINES NEG (NEG); CANNABINOIDS POS (NEG); COCAINE NEG (NEG); METHADONE NEG (NEG); OPIATES NEG (NEG); PHENCYCLIDINE NEG (NEG)
[2020-11-15] MEDS ORDERED: IV NORMAL SALINE 1000ML BAG 1,000 ML IV ONE (15:30)
[2020-11-15 15:43] LABS: AMPHETAMINE/METHAMPHETAMINE NEG (NEG)
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
--- NOTE | 2020-11-15 16:04 | EKG ---
[facility] [address] [place] [address] Test Date: 2020-11-15 Test Time: 15:01:30 Pat Name: JOYCE BLACKMAN Department: Room: Gender: F Pt Skilled: : 1960 Requested By: JIM MOSQUEDA Order Number: [id number] Reading MD: Measurements Intervals [place] Rate: 76 P: 54 MO: 190 QRS: -14 QRSD: 94 T: 71 QT: 346 QTc: 393 Interpretive Statements SINUS RHYTHM LEFT ATRIAL ABNORMALITY LEFTWARD AXIS T ABNORMALITY IN HIGH LATERAL LEADS ABNORMAL ECG RI6.02 No previous ECG available for comparison
[2020-11-15 16:27] LABS: BASO # 0.1 x10^3/uL (0.0-0.2); BASO % 1 % (0-3); EOS # 0.1 x10^3/uL (0.0-0.7); EOS % 1 % (0-3); HEMATOCRIT 43.5 % (36.0-47.0); HEMOGLOBIN 14.4 g/dL (12.0-15.5); LYMPH # 1.2 x10^3/uL (1.0-4.8); LYMPH % 15 % (24-48); MEAN CORPUSCULAR HEMOGLOBIN 32 pg (25-35); MEAN CORPUSCULAR HGB CONC 33 g/dL (31-37); MEAN CORPUSCULAR VOLUME 95 fL (79-100); MONO # 0.5 x10^3/uL (0.0-1.1); MONO % 7 % (0-9); NEUT # 6.3 x10^3/uL (1.8-7.7); NEUT % 77 % (31-73); PLATELET COUNT 176 x10^3/uL (140-400); RED BLOOD COUNT 4.57 x10^6/uL (3.50-5.40); RED CELL DISTRIBUTION WIDTH 13.5 % (11.5-14.5); WHITE BLOOD COUNT 8.3 x10^3/uL (4.0-11.0)
[2020-11-15 16:44] LABS: CALCIUM 11.2 mg/dL (8.5-10.1); CREATININE 1.1 mg/dL (0.6-1.0); GFR 61.1; POTASSIUM 3.1 mmol/L (3.5-5.1)
[2020-11-15 16:51] LABS: ALBUMIN 3.8 g/dL (3.4-5.0); TOTAL BILIRUBIN 1.2 mg/dL (0.2-1.0); TOTAL PROTEIN 7.6 g/dL (6.4-8.2)
[2020-11-15] MEDS ORDERED: IOHEXOL 300 MG/ML 100ML VIAL. IV ONE (18:00)
[2020-11-15] MEDS ORDERED: CONTRAST GIVEN. MC PRN (18:00)
[2020-11-15] MEDS ORDERED: ASPIRIN 325 MG TABLET PO ONE (18:00)
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
[2020-11-15] MEDS ORDERED: ONDANSETRON PF 4 MG/2 ML VIAL. IV PRN (21:30)
[2020-11-15 22:30] VITALS: BP 172/86
[2020-11-15] MEDS ORDERED: POTASSIUM CHLORIDE 20 MEQ TABLET.ER. PO ONE (23:30)
--- NOTE | 2020-11-16 00:38 | NUR ---
The patient, JOYCE BLACKMAN, 60 y/o, F admitted by AZ PARSON III, DO, was given written information regarding hospital policies, unit procedures and contact persons. Valuables were checked and jacket, pants, underwear, bra, earrings, jacket, shirt, and glasses.
[2020-11-16] MEDS ORDERED: POTASSIUM CHLORIDE 20 MEQ TABLET.ER. PO ONE (01:30)
--- NOTE | 2020-11-16 02:17 | NUR ---
Patient refusing to be NPO and explained to patient why she needed to be NPO and refused.
[2020-11-16 03:35] VITALS: BP 171/82
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
[2020-11-16] MEDS ORDERED: CARVEDILOL 12.5 MG TABLET. PO SCH (08:00)
[2020-11-16] MEDS ORDERED: ASPIRIN CHEWABLE 81 MG TABLET. PO SCH (09:00)
[2020-11-16] MEDS ORDERED: ATORVASTATIN CALCIUM 40 MG TABLET. PO SCH (09:00)
[2020-11-16] MEDS ORDERED: amLODIPine BESYLATE 10 MG TABLET PO SCH (09:00)
[2020-11-16] MEDS ORDERED: LOSARTAN POTASSIUM 25 MG TABLET. PO SCH (09:00)
[2020-11-16] MEDS ORDERED: FUROSEMIDE 40 MG TABLET. PO SCH (09:00)
[2020-11-16] MEDS ORDERED: hydroCHLOROthiazide 25 MG TABLET PO SCH (09:00)
[2020-11-16] MEDS ORDERED: IBUP200T44 PO (21:48)
== END 2020-11-16 05:40 | disposition left against medical advice (07) | DRG 605 ==
LOC: ER 13:57 → 2 SOUTH 21:33
PROVIDERS: ADMIT Internal Medicine; ATTEND Internal Medicine
DX: S20.219A Contusion of unspecified front wall of thorax, initial encounter (principal); Z53.29 Procedure and treatment not carried out because of patient's decision for other reasons; E78.00 Pure hypercholesterolemia, unspecified; E78.5 Hyperlipidemia, unspecified; I11.0 Hypertensive heart disease with heart failure; I50.9 Heart failure, unspecified; F17.200 Nicotine dependence, unspecified, uncomplicated; R77.8 Other specified abnormalities of plasma proteins; Y00.XXXA Assault by blunt object, initial encounter; M25.532 Pain in left wrist; M79.632 Pain in left forearm; M54.2 Cervicalgia; M54.9 Dorsalgia, unspecified; I25.10 Atherosclerotic heart disease of native coronary artery without angina pectoris; Z88.8 Allergy status to other drugs, medicaments and biological substances; Z82.49 Family history of ischemic heart disease and other diseases of the circulatory system; I25.2 Old myocardial infarction; Z59.0 Homelessness; Y93.89 Activity, other specified; Y92.89 Other specified places as the place of occurrence of the external cause; Y99.8 Other external cause status
CPT/HCPCS: 36415; 70450; 71045; 71260; 72072; 72125; 73090; 73100; 80053; 80307; 84484; 85025; 93005; 96360; 99285; G0480; J7030; Q9967; G0378

== ENCOUNTER 2020-11-16 21:15 | Emergency (ER) | payer SELFPAY ==
[~2020-11-16] VITALS: Ht 162.6 cm; Wt 91.0 kg
[2020-11-16] MEDS ORDERED: IBUPROFEN 200 MG TABLET. PO ONE (21:45)
[2020-11-16] MEDS ORDERED: IBUP200T44 PO (21:48)
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
[2020-11-16 22:00] VITALS: BP 175/83
== END 2020-11-16 22:15 | disposition home or self-care (01) ==
LOC: ER 21:15
DX: G89.29 Other chronic pain (principal); M25.562 Pain in left knee; M25.561 Pain in right knee; R07.89 Other chest pain; G89.11 Acute pain due to trauma; Z59.0 Homelessness; E78.00 Pure hypercholesterolemia, unspecified; I25.2 Old myocardial infarction; I11.0 Hypertensive heart disease with heart failure; I50.9 Heart failure, unspecified; I25.10 Atherosclerotic heart disease of native coronary artery without angina pectoris; F17.200 Nicotine dependence, unspecified, uncomplicated; F10.20 Alcohol dependence, uncomplicated; Y90.9 Presence of alcohol in blood, level not specified; Z88.8 Allergy status to other drugs, medicaments and biological substances; W18.39XA Other fall on same level, initial encounter; Y93.89 Activity, other specified; Y92.89 Other specified places as the place of occurrence of the external cause; Y99.8 Other external cause status
CPT/HCPCS: 99283

== ENCOUNTER 2020-11-20 07:26 | Emergency (ER) | payer SELFPAY ==
[~2020-11-20] VITALS: Ht 165.1 cm; Wt 90.0 kg
[~2020-11-20 07:26] MED LIST changes: +IBUP200T44 PO
[2020-11-20 08:03] VITALS: BP 160/77
[2020-11-20 08:09] LABS: BASO # 0.1 x10^3/uL (0.0-0.2); BASO % 1 % (0-3); EOS # 0.2 x10^3/uL (0.0-0.7); EOS % 4 % (0-3); HEMATOCRIT 43.9 % (36.0-47.0); HEMOGLOBIN 14.5 g/dL (12.0-15.5); LYMPH # 1.2 x10^3/uL (1.0-4.8); LYMPH % 21 % (24-48); MEAN CORPUSCULAR HEMOGLOBIN 31 pg (25-35); MEAN CORPUSCULAR HGB CONC 33 g/dL (31-37); MEAN CORPUSCULAR VOLUME 95 fL (79-100); MONO # 0.4 x10^3/uL (0.0-1.1); MONO % 6 % (0-9); NEUT % 67 % (31-73); PLATELET COUNT 206 x10^3/uL (140-400); RED BLOOD COUNT 4.63 x10^6/uL (3.50-5.40); RED CELL DISTRIBUTION WIDTH 13.7 % (11.5-14.5); WHITE BLOOD COUNT 5.9 x10^3/uL (4.0-11.0)
[2020-11-20] MEDS ORDERED: IV NORMAL SALINE 1000ML BAG 1,000 ML IV ONE (08:15)
[2020-11-20 08:17] LABS: CALCIUM 10.4 mg/dL (8.5-10.1); CREATININE 0.9 mg/dL (0.6-1.0); POTASSIUM 3.3 mmol/L (3.5-5.1)
--- NOTE | 2020-11-20 08:19 | RAD ---
Exam performed: CT scan of the head without contrast. Date of Service: 11/20/2020. Comparison: None available. Clinical History: Altered mental status. Technique: Helical acquisitions are obtained from the foramen magnum to the vertex without intravenou s administration of contrast. Findings: The ventricles are midline without evidence of dilatation. Normal horne-white differentiation is maint ained. There is no extra axial fluid collection, intraparenchymal hemorrhage or mass lesion. The vi sualized portions of the orbits, paranasal sinuses and the mastoid air cells appear clear. The dee rium is intact. Impression: 1. No acute intracranial process detected. PQRS Compliance Statement: One or more of the following individualized dose reduction techniques were utilized for this examinat ion: 1. Automated exposure control 2. Adjustment of the mA and/or kV according to patient size 3. Use of iterative reconstruction technique Electronically signed by: Zuly Talley MD (11/20/2020 8:16 AM) [id number]
--- NOTE | 2020-11-20 08:28 | RAD ---
Exam performed: One view chest. Indication: Reason: altered mental status / Spl. Instructions: / History: Date of Service: 11/20/2020 8:15 AM Comparison: One view chest from the 2020. Single AP upright portable view chest findings: Cardiomediastinal silhouette is within limits of normal. No acute infiltrates, effusion or pneumotho rax is detected. The bony structures are normal. Impression: No acute cardiopulmonary process is detected. Electronically signed by: Zuly Talley MD (11/20/2020 8:25 AM) [id number]
[2020-11-20 08:32] LABS: ALBUMIN 3.6 g/dL (3.4-5.0); ALBUMIN/GLOBULIN RATIO 0.9 (1.0-1.7); MAGNESIUM 2.1 mg/dL (1.8-2.4); TOTAL BILIRUBIN 0.9 mg/dL (0.2-1.0); TOTAL PROTEIN 7.6 g/dL (6.4-8.2)
--- NOTE | 2020-11-20 08:45 | PHYS DOC ---
Past Medical History Past Medical History: CAD, CHF, High Cholesterol, Hypertension, NE, Other Additional Past Medical Histor: cardiomegaly Past Surgical History: Other Additional Past Surgical Histo: cervix, heart cath Smoking Status: Current Every Day Smoker Alcohol Use: Occasionally Drug Use: None Adult General Chief Complaint Chief Complaint: ALTERED MENTAL STATUS HPI HPI Patient is a 60 year old female with a known past medical history of coronary artery disease, CHF, hypertension, hyperlipidemia and substance abuse brought to the emergency department for altered mental status. They were called by police with the patient was found outside and was found to be somnolent and they are concerned about drug or alcohol intoxication. Patient does have a history of alcohol intoxication and substance abuse has been seen here in the emergency d epartment multiple times. Patient arrives nonverbal and not providing any significant history. According to EMS vital signs were stable on route. Patient glucose on arrival was 96 Review of Systems Review of Systems Constitutional: Denies fever or chills [] Eyes: Denies change in visual acuity, redness, or eye pain [] HENT: Denies nasal congestion or sore throat [] Respiratory: Denies cough or shortness of breath [] Cardiovascular: No additional information not addressed in HPI [] GI: Denies abdominal pain, nausea, vomiting, bloody stools or diarrhea [] : Denies dysuria or hematuria [] Musculoskeletal: Denies back pain or joint pain [] Integument: Denies rash or skin lesions [] Neurologic: Denies headache, focal weakness or sensory changes [] Endocrine: Denies polyuria or polydipsia [] All other systems were reviewed and found to be within normal limits, except as documented in this note. Current Medications Current Medications Current Medications Medications (Trade) Dose Ordered Sig/Brenna Start Time Stop Time Status Last Admin Dose Admin Sodium Chloride 1,000 ml @ 1,000 mls/hr 1X ONCE 11/20/20 08:15 11/20/20 09:14 DC 11/20/20 08:23 1,000 MLS/HR Allergies Allergies Allergies Coded Allergies Type Severity Reaction Last Updated Verified nitroglycerin Allergy Intermediate 08/05/16 Yes Physical Exam Physical Exam Constitutional: Well developed, well nourished, no acute distress, non-toxic appearance. [] HENT: Normocephalic, atraumatic, bilateral external ears normal, oropharynx moist, no oral exudates, nose normal. [] Eyes: PERRLA, EOMI, conjunctiva normal, no discharge. [] Neck: Normal range of motion, no tenderness, supple, no stridor. [] Cardiovascular:Heart rate regular rhythm, no murmur [] Lungs & Thorax: Bilateral breath sounds clear to auscultation [] Abdomen: Bowel sounds normal, soft, no tenderness, no masses, no pulsatile masses. [] Skin: Warm, dry, no erythema, no rash. [] Back: No tenderness, no CVA tenderness. [] Extremities: No tenderness, no cyanosis, no clubbing, ROM intact, no edema. [] Neurologic: Arousable reactionary to noxious stimuli, normal motor function, normal sensory function, no focal deficits noted. [] Psychologic: Affect normal, judgement normal, mood normal. [] Current Patient Data Vital Signs Vital Signs Date Time Temp Pulse Resp B/P (MAP) Pulse Ox O2 Delivery O2 Flow Rate FiO2 11/20/20 08:03 62 16 160/77 (104) 97 Room Air 11/20/20 07:30 97.1 97.1 Lab Values Laboratory Tests Test 11/20/20 07:36 11/20/20 07:54 11/20/20 09:00 Glucose (Fingerstick) 97 mg/dL (70-99) White Blood Count 5.9 x10^3/uL (4.0-11.0) Red Blood Count 4.63 x10^6/uL (3.50-5.40) Hemoglobin 14.5 g/dL (12.0-15.5) Hematocrit 43.9 % (36.0-47.0) Mean Corpuscular Volume 95 fL (79-100) Mean Corpuscular Hemoglobin 31 pg (25-35) Mean Corpuscular Hemoglobin Concent 33 g/dL (31-37) Red Cell Distribution Width 13.7 % (11.5-14.5) Platelet Count 206 x10^3/uL (140-400) Neutrophils (%) (Auto) 67 % (31-73) Lymphocytes (%) (Auto) 21 % (24-48) L Monocytes (%) (Auto) 6 % (0-9) Eosinophils (%) (Auto) 4 % (0-3) H Basophils (%) (Auto) 1 % (0-3) Neutrophils # (Auto) 4.0 x10^3/uL (1.8-7.7) Lymphocytes # (Auto) 1.2 x10^3/uL (1.0-4.8) Monocytes # (Auto) 0.4 x10^3/uL (0.0-1.1) Eosinophils # (Auto) 0.2 x10^3/uL (0.0-0.7) Basophils # (Auto) 0.1 x10^3/uL (0.0-0.2) Sodium Level 141 mmol/L (136-145) Potassium Level 3.3 mmol/L (3.5-5.1) L Chloride Level 102 mmol/L (98-107) Carbon Dioxide Level 24 mmol/L (21-32) Anion Gap 15 (6-14) H Blood Urea Nitrogen 12 mg/dL (7-20) Creatinine 0.9 mg/dL (0.6-1.0) Estimated GFR (Cockcroft-Gault) 77.0 BUN/Creatinine Ratio 13 (6-20) Glucose Level 98 mg/dL (70-99) Calcium Level 10.4 mg/dL (8.5-10.1) H Magnesium Level 2.1 mg/dL (1.8-2.4) Total Bilirubin 0.9 mg/dL (0.2-1.0) Aspartate Amino Transferase (AST) 67 U/L (15-37) H Alanine Aminotransferase (ALT) 71 U/L (14-59) H Alkaline Phosphatase 111 U/L (46-116) Ammonia 20 mcmol/L (11-34) Creatine Kinase 1497 U/L (26-192) H Total Protein 7.6 g/dL (6.4-8.2) Albumin 3.6 g/dL (3.4-5.0) Albumin/Globulin Ratio 0.9 (1.0-1.7) L Ethyl Alcohol Level 58 mg/dL (0-10) H Urine Collection Type U cath Urine Color Yellow Urine Clarity Clear Urine pH 7.0 (<5.0-8.0) Urine Specific Jackson <=1.005 (1.000-1.030) Urine Protein Negative mg/dL (NEG-TRACE) Urine Glucose (UA) Negative mg/dL (NEG) Urine Ketones (Stick) Negative mg/dL (NEG) Urine Blood Negative (NEG) Urine Nitrite Negative (NEG) Urine Bilirubin Negative (NEG) Urine Urobilinogen Dipstick 1.0 mg/dL (0.2 mg/dL) Urine Leukocyte Esterase Negative (NEG) Urine RBC 0 /HPF (0-2) Urine WBC Rare /HPF (0-4) Urine Squamous Epithelial Cells Mod /LPF Urine Bacteria 0 /HPF (0-FEW) Urine Mucus Slight /LPF Urine Opiates Screen Neg (NEG) Urine Methadone Screen Neg (NEG) Urine Barbiturates Neg (NEG) Urine Phencyclidine Screen Neg (NEG) Urine Amphetamine/Methamphetamine Neg (NEG) Urine Benzodiazepines Screen Neg (NEG) Urine Cocaine Screen Neg (NEG) Urine Cannabinoids Screen Neg (NEG) Urine Ethyl Alcohol Pos (NEG) Laboratory Tests 11/20/20 07:54 Laboratory Tests 11/20/20 07:54 EKG EKG [] Radiology/Procedures Radiology/Procedures [] Course & Med Decision Making Course & Med Decision Making Pertinent Labs and Imaging studies reviewed. (See chart for details) 60F presented emergency department with altered mental status. Broad differential at this time but does include alcohol or drug intoxication. Less likely to be cardio or cerebrovascular abnormality. Less likely to be stroke given the patient's change in normal neurologic function. At this time will obtain a full work-up including CT of the head as well as blood work and urine to make sure there is no significant underlying etiology. 12:08 -on reevaluation the patient's mental status appears to have significantly improved. The patient is now alert and oriented x4. Labs do demonstrate an elevated alcohol level which explain the patient's altered mental status. She is currently requesting discharge home. I spoken with the patient and her caregivers. I explained the patient's condition, diagnoses and treatment plan based on the information available to me at this time. I have answered the patient and her caregiver's questions and addressed any concerns. The patient and her caregivers have a good understanding of patient's diagnosis, condition and treatment plan as can be expected at this point. Vital signs have been stable. Patient's condition is stable and appropriate for discharge from the emergency department. Patient will pursue further outpatient evaluation with primary care physician or other designated or consulting physician as outlined in the discharge instructions. The patient and/or caregivers are agreeable to this plan of care and follow-up instructions have been explained in detail. The patient and/or caregivers have received these instructions in written form and have expressed an understanding of the discharge instructions. The patient and/or caregivers are aware that any significant change of condition or worsening of symptoms should prompt immediate return to this or the closest emergency department or call to 911. Kelsey Disclaimer Kelsey Disclaimer This electronic medical record was generated, in whole or in part, using a voice recognition dictation system. Departure Departure Impression: Primary Impression: Alcohol intoxication Disposition: 01 DC HOME SELF CARE/HOMELESS Condition: GOOD Referrals: GINO NAVA MD Patient Instructions: Alcohol Intoxication Additional Instructions: EMERGENCY DEPARTMENT GENERAL DISCHARGE INSTRUCTIONS Thank you for coming to [facility] Emergency Department (ED) today and trusting us with you care. We trust that you had a positive experience in our Emergency Department. If you wish to speak to the department management, you may call the Director at [phone]. YOUR FOLLOW UP INSTRUCTIONS ARE FOLLOWS: 1. Do you have a private Doctor? If you do not have a private doctor, please ask for a resource list of physicians or clinics that may be able to assist you with follow up care. 2. The Emergency Physicain has interpreted your x-rays. The X-Ray specialist will also review them. If there is a change in the findings, you will be notified in 48 hours when at all possible. 3. A lab test or culture has been done, your results will be reviewed and you will be notified if you need a change in treatment. ADDITIONAL INSTRUCTIONS AND INFORMATION: 1. Your care today has been supervised by a physician who is specially trained in emergency care. Many problems require more than one evaluation for a complete diagnosis and treatment. We recommend that you schedule your follow up appointment as recommended to ensure complete treatment of you illness or injury. If you are unable to obtain follow up care and continue to have a problem, or if your condition worsens, we recommend that you return to the ED. 2. We are not able to safely determine your condition over the phone nor are we able to give sound medical advice over the phone. For these safety reasons, if you call for medical advice we will ask you to come to the ED for further evaluation. 3. If you have any questions regarding these discharge instructions please call the ED at [phone]. SAFETY INFORMATION: In the interest of safety, wellness, and injury prevention; we encourage you to wear your sealbelt, if you smoke; quite smoking, and we encourage family to use a protective helmet for bicycling and other sporting events that present an increased risk for head injury. IF YOUR SYMPTOMS WORSEN OR NEW SYMPTOMS DEVELOP, OR YOU HAVE CONCERNS ABOUT YOUR CONDITION; OR IF YOUR CONDITION WORSENS WHILE YOU ARE WAITING FOR YOUR FOLLOW UP APPOINTMENT; EITHER CONTACT YOUR PRIMARY CARE DOCTOR, THE PHYSICIAN WHOSE NAME AND NUMBER YOU WERE GIVEN, OR RETURN TO THE ED IMMEDIATELY. MAG GONZALEZ MD Nov 20, 2020 08:45
[2020-11-20 09:09] LABS: BILIRUBIN,URINE NEGATIVE (NEG); CLARITY,URINE CLEAR; COLOR,URINE YELLOW; NITRITE,URINE NEGATIVE (NEG); PROTEIN,URINE NEGATIVE (NEG-TRACE)
[2020-11-20 09:15] LABS: BARBITURATES NEG (NEG); BENZODIAZEPINES NEG (NEG); CANNABINOIDS NEG (NEG); COCAINE NEG (NEG); METHADONE NEG (NEG); OPIATES NEG (NEG); PHENCYCLIDINE NEG (NEG)
[2020-11-20 09:16] LABS: AMPHETAMINE/METHAMPHETAMINE NEG (NEG)
[2020-11-20 09:24] LABS: BACTERIA,URINE 0 /HPF (0-FEW); RBC,URINE 0 /HPF (0-2); WBC,URINE RARE /HPF (0-4)
--- NOTE | 2020-11-20 20:35 | EKG ---
[facility] [address] [place] [address] Test Date: 2020-11-20 Test Time: 07:36:55 Pat Name: JOYCE BLACKMAN Department: Room: Gender: F [employer]: : 1960 Requested By: MAG GONZALEZ Order Number: [id number] Reading MD: Measurements Intervals [place] Rate: 70 P: 68 NV: 184 QRS: -11 QRSD: 96 T: 70 QT: 372 QTc: 404 Interpretive Statements SINUS RHYTHM VENTRICULAR PREMATURE COMPLEX(ES) LEFT ATRIAL ABNORMALITY LEFTWARD AXIS QRS(T) CONTOUR ABNORMALITY CONSISTENT WITH SEPTAL INFARCT PROBABLY OLD ABNORMAL ECG RI6.02 No previous ECG available for comparison
== END 2020-11-20 16:28 | disposition home or self-care (01) ==
LOC: ER 07:26
DX: F10.229 Alcohol dependence with intoxication, unspecified (principal); R41.82 Altered mental status, unspecified; E78.00 Pure hypercholesterolemia, unspecified; I11.0 Hypertensive heart disease with heart failure; I50.9 Heart failure, unspecified; I25.2 Old myocardial infarction; F17.200 Nicotine dependence, unspecified, uncomplicated; Z98.890 Other specified postprocedural states; Z88.1 Allergy status to other antibiotic agents
CPT/HCPCS: 36415; 70450; 71045; 80053; 80307; 81001; 82140; 82550; 82962; 83735; 85025; 93005; 96360; 99285; G0480; J7030

== ENCOUNTER 2020-11-22 01:02 | Emergency (ER) | payer SELFPAY | END 2020-11-22 01:45 | disposition left against medical advice (07) | LOC: ER 01:02 | DX: M79.672 Pain in left foot (principal); Z53.21 Procedure and treatment not carried out due to patient leaving prior to being seen by health care provider ==